=== PATIENT | female | born 1950 | race African-American/Black ===

== ENCOUNTER 2018-07-24 11:29 | Emergency (ER) | payer MEDICAID, OTHER ==
[~2018-07-24] VITALS: Ht 152.4 cm; Wt 72.0 kg
[2018-07-24] MEDS ORDERED: SODIUM CHLORIDE 0.9% 1,000 ML IV ONE (12:10)
[2018-07-24] MEDS ORDERED: AMLODIPINE 5MG TABLET PO ONE (12:15)
[2018-07-24 12:56] LABS: BASOPHILS % 0.6 % (0.0-2.0); EOSINOPHILS % 1.1 % (0.0-5.0); HEMATOCRIT. 42.7 % (36.0-48.0); HEMOGLOBIN. 14.3 g/dL (12.0-16.0); LYMPHOCYTES % 32.9 % (20.0-50.0); MEAN CORPUSCULAR HEMOGLOBIN 28.9 pg (28.0-32.0); MEAN CORPUSCULAR VOLUME 86.3 fL (81.0-99.0); MEAN PLATELET VOLUME 10.3 fl (7.4-10.4); MONOCYTES % 6.9 % (2.0-8.0); NEUTROPHILS % 58.5 % (40.0-76.0); PLATELET 278 x1000/uL (130-400); RED BLOOD CELL COUNT 4.94 mill/uL (4.2-5.4); RED CELL DISTRIBUTION WIDTH 13.7 % (11.6-14.6)
[2018-07-24 13:02] LABS: CHLORIDE 103 mEq/L (98-107)
[2018-07-24 13:03] LABS: PROTHROMBIN TIME 9.6 sec (9.1-11.1)
[2018-07-24 15:54] LABS: CHLORIDE 107 mEq/L (98-107)
[2018-07-24 16:59] VITALS: BP 157/73
== END 2018-07-24 17:02 | disposition home or self-care (01) ==
LOC: ER 11:36
DX: I10 Essential (primary) hypertension (principal); R55 Syncope and collapse
CPT/HCPCS: 36415; 70450; 71045; 80048; 80053; 83880; 84484; 85025; 85610; 93005; 96360; 96361; 99285; J7030